=== PATIENT | male | born 1980 ===

== ENCOUNTER 2017-10-22 09:16 | Emergency (ER) | payer OTHER ==
[2017-10-22 09:34] VITALS: BP 124/71
--- NOTE | 2017-10-22 10:02 | UC ---
Throat Pain/Nasal [place] HPI - HPI Summary HPI Summary: 37 yo male with long standing hx of enlarged tonsils and tonsillitis presents with a 10 or so hx of sore throat/sinus pressure and pain/post nasal drip had bilateral AM eye d/c which has cleared up for the past five days has had low energy/malaise - History of Current Complaint Chief Complaint: UCRespiratory Stated Complaint: SORE THROAT Time Seen by Provider: 10/22/17 09:53 Hx Obtained From: Patient Onset/Duration: Gradual Onset, Lasting Weeks Severity: Moderate - 4 Pain Scale Used: 0-10 Numeric Cough: Nonproductive - Allergies/Home Medications Allergies/Adverse Reactions: Allergies Allergy/AdvReac Type Severity Reaction Status Date / Time No Known Allergies Allergy Verified 10/22/17 09:34 Home Medications: Home Medications Ibuprofen [Ibuprofen 200 MG] 10/22/17 [History] [id number] [Nyquil Severe Cold/Flu 5-6.25-10-325 mg/15Ml] 10/22/17 [History] PMH/Surg Hx/FS Hx/Imm Hx Previously Healthy: Yes - Surgical History Surgical History: None - Family History Known Family History: Positive: Hypertension - Social History Alcohol Use: None Substance Use Type: None Smoking Status (MU): Never Smoked Tobacco Household Exposure Type: Cigarettes Review of Systems Constitutional: Fatigue ENT: Sore Throat, Nasal Discharge Respiratory: Cough Is Patient Immunocompromised?: No All Other Systems Reviewed And Are Negative: Yes Physical Exam Triage Information Reviewed: Yes Appearance: Well-Appearing, No Pain Distress, Well-Nourished Vital Signs: Initial Vital Signs Temp 97.6 F 10/22/17 09:21 Pulse 80 10/22/17 09:21 Resp 16 10/22/17 09:21 BP 124/71 10/22/17 09:21 Pulse Ox 97 10/22/17 09:21 Eyes: Positive: Conjunctiva Clear ENT: Positive: Hearing grossly normal, Pharyngeal erythema, Nasal congestion, TMs normal, Tonsillar swelling, Sinus tenderness - mild, Uvula midline. Negative: Tonsillar exudate, Trismus, Muffled voice, Hoarse voice Dental Exam: Normal Neck: Positive: Supple, Nontender, Enlarged Nodes @ - ant cervical Respiratory: Positive: Lungs clear, Normal breath sounds, No respiratory distress, No accessory muscle use Cardiovascular: Positive: RRR, No Murmur Abdomen Description: Positive: Nontender, No Organomegaly Bowel Sounds: Positive: Present Musculoskeletal: Positive: ROM Intact, No Edema Neurological: Positive: Alert Psychological Exam: Normal Skin Exam: Normal Throat Pain/Nasal Course/Dx - Differential Dx/Diagnosis Provider Diagnoses: acute sinusitis. enlarged tonsils Discharge - Discharge Plan Condition: Stable Disposition: HOME Prescriptions: Amoxicillin/Clavulanate TAB* [Augmentin TAB 875*] 875 mg PO BID #20 tab Patient Education Materials: Sinusitis (ED) Referrals: No Primary Care Phys,NOPCP [Primary Care Provider] - Additional Instructions: recheck in 3-4 days if not improved please consider finding a primary care provider -you may have sleep apnea and benefit from having your tonsils removed
== END 2017-10-22 10:21 | disposition home or self-care (01) ==
LOC: UCEAST 09:16
DX: J01.90 Acute sinusitis, unspecified (principal); J35.1 Hypertrophy of tonsils
CPT/HCPCS: 87070; 99202; G0463